=== PATIENT | male | born 1970 | race Caucasian/White ===

== ENCOUNTER 2018-09-21 11:32 | Emergency (ER) | payer OTHER ==
[2018-09-21 11:55] LABS: PLATELET COUNT 282 10^3/uL (150-400)
--- NOTE | 2018-09-21 12:02 | EDPHY ---
H & P Time Seen by Provider: 09/21/18 12:01 HPI/ROS: CHIEF COMPLAINT: Severe left flank pain HISTORY OF PRESENT ILLNESS: Was driving to work, works as a mailman, developed severe left flank pain which radiates down to his left groin. Not better worse with position, symptoms are severe. No recent injury or trauma, no abdominal pain in front, no fever or chills or urinary symptoms. REVIEW OF SYSTEMS: Eye: no change in vision ENT: no sore throat Cardiac: no chest pain or syncope Pulmonary: no cough or SOB Abdomen: no vomiting, diarrhea, abdominal pain Musculoskeletal: HPI Skin: no rash Neuro: no headache Constitutional: no fever : no urinary symptoms A comprehensive 10 point review of systems is otherwise negative aside from elements mentioned in the history of present illness. PAST MEDICAL HISTORY: Hernia surgery Social history: Works as a mailman General Appearance: Alert and conversant, cooperative. Very restless and uncomfortable. Eyes: No scleral icterus. ENT, Mouth: Normal mucous membranes. Respiratory: Normal respiratory effort, breath sounds equal, lungs are clear to auscultation. Cardiovascular: Regular rate and rhythm. Gastrointestinal: Abdomen is soft and non tender. No pulsatile mass. Normal male . Neurological: Alert, face symmetric, normal motor and sensory in extremities. Skin: Warm and dry, no rashes. Musculoskeletal: No peripheral edema. Psychiatric: Not agitated. Emergency Department course/MDM: Dilaudid 2 mg IV. Arrives by EMS and was comfortable after fentanyl but then have recurrent pain. CT abdomen pelvis discussed and consented to evaluate for renal colic. 1304: Results discussed with the patient, feels more comfortable but is sleepy. IV Toradol. 1400: Comfortable, plan to discharge when he is able to be weaned off his oxygen. Smoking Status: Heavy smoker Constitutional: Initial Vital Signs Temperature (C) 36.7 C 09/21/18 11:35 Heart Rate 70 09/21/18 11:35 Respiratory Rate 18 09/21/18 11:35 Blood Pressure 139/88 H 09/21/18 11:35 O2 Sat (%) 96 09/21/18 11:35 O2 Delivery Mode Nasal Cannula O2 (L/minute) 4 Allergies/Adverse Reactions: No Known Allergies Allergy (Unverified 09/21/18 11:42) Home Medications: Medication Instructions Recorded oxyCODONE/APAP 5/325 [Percocet] 1 - 2 tab PO Q4-6PRN PRN #11 tab 09/21/18 Medical Decision Making - Diagnostics Imaging Results: Imaging Impressions Abdomen/Pelvis CT 09/21/18 12:05 Impression: 3 mm distal left ureteral calculus. Results discussed with Dr. Brendon Hernandez. General information for patients regarding this examination can be found at [email or web address]. If you have questions or comments about this report, please contact me at [phone] (hospital) or [phone] ([facility]). Imaging: I viewed and interpreted images myself - Data Points Laboratory Results: Laboratory Results 09/21/18 11:40 09/21/18 11:40 09/21/18 09/21/18 09/21/18 11:40 11:40 11:40 WBC 6.79 10^3/uL 10^3/uL (3.80-9.50) RBC 4.72 10^6/uL 10^6/uL (4.40-6.38) Hgb 16.4 g/dL g/dL (13.7-17.5) Hct 46.3 % % (40.0-51.0) MCV 98.1 fL fL (81.5-99.8) MCH 34.7 pg H pg (27.9-34.1) MCHC 35.4 g/dL g/dL (32.4-36.7) RDW 14.0 % % (11.5-15.2) Plt Count 282 10^3/uL 10^3/uL (150-400) MPV 9.1 fL fL (8.7-11.7) Neut % (Auto) 46.2 % % (39.3-74.2) Lymph % (Auto) 40.8 % % (15.0-45.0) [place] % (Auto) 10.2 % % (4.5-13.0) Eos % (Auto) 1.6 % % (0.6-7.6) Baso % (Auto) 0.9 % % (0.3-1.7) Nucleat RBC Rel Count 0.0 % % (0.0-0.2) Absolute Neuts (auto) 3.14 10^3/uL 10^3/uL (1.70-6.50) Absolute Lymphs (auto) 2.77 10^3/uL 10^3/uL (1.00-3.00) Absolute Monos (auto) 0.69 10^3/uL 10^3/uL (0.30-0.80) Absolute Eos (auto) 0.11 10^3/uL 10^3/uL (0.03-0.40) Absolute Basos (auto) 0.06 10^3/uL 10^3/uL (0.02-0.10) Absolute Nucleated RBC 0.00 10^3/uL 10^3/uL (0-0.01) Immature Gran % 0.3 % % (0.0-1.1) Immature Gran # 0.02 10^3/uL 10^3/uL (0.00-0.10) Sodium 139 mEq/L mEq/L (135-145) Potassium 4.2 mEq/L mEq/L (3.5-5.2) Chloride 105 mEq/L mEq/L (97-110) Carbon Dioxide 24 mEq/l mEq/l (22-31) Anion Gap 10 mEq/L mEq/L (6-14) BUN 19 mg/dL mg/dL (7-23) Creatinine 1.0 mg/dL mg/dL (0.7-1.3) Estimated GFR > 60 Glucose 94 mg/dL mg/dL (70-100) Calcium 9.9 mg/dL mg/dL (8.5-10.4) Urine Color YELLOW Urine Appearance HAZY Urine pH 8.0 H (5.0-7.5) Ur Specific [place] 1.025 (1.002-1.030) Urine Protein 1+ H (NEGATIVE) Urine Ketones NEGATIVE (NEGATIVE) Urine Blood 2+ H (NEGATIVE) Urine Nitrate NEGATIVE (NEGATIVE) Urine Bilirubin NEGATIVE (NEGATIVE) Urine Urobilinogen NEGATIVE EU EU (0.2-1.0) Ur Leukocyte Esterase NEGATIVE (NEGATIVE) Urine RBC 50-182 /hpf H /hpf (0-3) Urine WBC 1-3 /hpf /hpf (0-3) Ur Epithelial Cells NONE SEEN /lpf /lpf (NONE-1+) Urine Mucus TRACE /lpf /lpf (NONE-1+) Urine Glucose NEGATIVE (NEGATIVE) Medications Given: Discontinued Medications Hydromorphone HCl (Dilaudid) 2 mg IVP EDNOW ONE Stop: 09/21/18 12:06 Last Admin: 09/21/18 12:21 Dose: 2 mg Ketorolac Tromethamine (Toradol) 15 mg IVP EDNOW ONE Stop: 09/21/18 13:07 Last Admin: 09/21/18 13:12 Dose: 15 mg Ondansetron HCl (Zofran) 4 mg IVP EDNOW ONE Stop: 09/21/18 12:23 Last Admin: 09/21/18 12:23 Dose: 4 mg Departure - Departure Disposition: Home, Routine, Self-Care Clinical Impression: Renal colic on left side Condition: Good Instructions: Renal Colic (ED) Additional Instructions: Oral ibuprofen 600 mg every 8 hr as needed for pain for the next 3-5 days. Referrals: David Klein MD [Medical Doctor] - 3-4 days, if not improved Stand Alone Forms: Work Excuse Prescriptions: oxyCODONE/APAP 5/325 [Percocet] 1 - 2 tab PO Q4-6PRN PRN #11 tab PRN Reason: Pain
[2018-09-21] MEDS ORDERED: HYDROmorphONE/DILAUDID 2 MG/ML INJ IVP ONE (12:05)
[2018-09-21] MEDS ORDERED: ONDANSETRON 4 MG/2 ML VIAL ONE (12:07)
[2018-09-21] MEDS ORDERED: ONDANSETRON 4 MG/2 ML VIAL IVP ONE (12:22)
[2018-09-21] MEDS ORDERED: KETOROLAC 30 MG/1 ML SDV IVP ONE (13:06)
[2018-09-21] MEDS ORDERED: KETOROLAC 15 MG/1 ML SDV ONE (13:10)
[2018-09-21 15:39] VITALS: BP 145/83
== END 2018-09-21 15:39 | disposition home or self-care (01) ==
DX: N20.1 Calculus of ureter (principal); R10.9 Unspecified abdominal pain
CPT/HCPCS: 96374; J1170; J1885; J2405